=== PATIENT | female | born 1950 | race Native Hawaiian/Other Pacific Islander ===

== ENCOUNTER 2018-01-11 13:32 | Emergency (ER) | payer OTHER ==
[~2018-01-11] VITALS: Ht 170.2 cm; Wt 54.4 kg
[2018-01-11 13:25] VITALS: BP 129/42; TEMP 98.6
[2018-01-11 13:54] LABS: PLATELET COUNT 186 K/uL (152-353)
[2018-01-11] MEDS ORDERED: FERROUS SULF325 M1 PO (16:37)
[2018-01-11] MEDS ORDERED: FLUOXETINE40 MG PO (16:38)
[2018-01-11] MEDS ORDERED: FLUOXETINE10 MG PO (16:39)
[2018-01-11] MEDS ORDERED: GABA300C2 PO (16:39)
[2018-01-11] MEDS ORDERED: MOBIC15 MG PO (16:41)
[2018-01-11] MEDS ORDERED: HYDROCHLOROT50 MG PO (16:41)
[2018-01-11] MEDS ORDERED: POTA20TA4 PO (16:43)
[2018-01-11] MEDS ORDERED: VITAMIN B-121000 MC2 PO (16:43)
[2018-01-11] MEDS ORDERED: ZIPR20CA PO ×2 (16:45)
[2018-01-11] MEDS ORDERED: HYDR10TA47 PO (16:47)
[2018-01-11] MEDS ORDERED: DOCU100C10 PO (16:48)
[2018-01-11] MEDS ORDERED: HYDR25CA25 PO (16:49)
[2018-01-11] MEDS ORDERED: LORA1TAB17 PO (16:50)
[2018-01-11] MEDS ORDERED: TRAM50TA PO (16:51)
[2018-01-11] MEDS ORDERED: TIZA4TAB5 PO (16:51)
== END 2018-01-11 15:43 | disposition other institution (70) ==
LOC: ED 13:32
DX: R41.82 Altered mental status, unspecified (principal); J18.8 Other pneumonia, unspecified organism
CPT/HCPCS: 36415; 80053; 85027; 93005; 96372; 99283; J0696